=== PATIENT | male | born 1975 | race Hispanic/Latino ===

== ENCOUNTER 2023-05-15 06:29 | Day surgery (SDC) | payer BC ==
[2023-05-14 15:31] LABS: Absolute Lymphocytes (CBC) 1.6 K/uL (0.7-4.9); Hematocrit 44.1 % (39.6-49.0); Lymphocytes % 26.4 % (15.3-44.8); MCV 89.4 fL (80-100); MPV 9.4 fL (7.6-11.3); Platelets 217 thou/uL (152-406); Protime INR 1.03; RBC Red Blood Cell Count 4.94 M/uL (4.33-5.43)
[2023-05-14 16:38] LABS: Potassium 3.8 mEq/L (3.5-5.1)
[2023-05-15] MEDS ORDERED: Ringers Lactate 1,000 ML IV ONE (06:57)
[2023-05-15] MEDS ORDERED: CEFAZOLIN SODIUM 2 GM/VIAL ONE (06:57)
[2023-05-15] MEDS ORDERED: BUPIVACAINE 0.5% PF 10 ML VIAL ONE (08:10)
[2023-05-15] MEDS ORDERED: MIDAZOLAM HCL 2 MG/2 ML INJ ONE (09:05)
[2023-05-15] MEDS ORDERED: propofoL 200 MG/20 ML VIAL IV ONE (09:05)
[2023-05-15] MEDS ORDERED: FENTANYL CITR 100 MCG/2 ML ONE (09:05)
[2023-05-15] MEDS ORDERED: LIDOCAINE 2% MPF 5 ML VIAL ONE (09:06)
[2023-05-15] MEDS ORDERED: ONDANSETRON 4 MG/2 ML VIAL ONE (09:06)
[2023-05-15] MEDS ORDERED: dexAMETHasone 4 MG/ML VIAL ONE (09:24)
[2023-05-15] MEDS ORDERED: KETOROLAC 30 MG/ML INJ ONE (09:24)
[2023-05-15] MEDS ORDERED: KETAMINE HCL IN 0.9 % NACL 50 MG/5 ML SYRINGE IV ONE (09:33)
[2023-05-15] MEDS ORDERED: MORPHINE 10 MG/ML VIAL ONE (09:41)
[2023-05-15] MEDS ORDERED: HYDROCODONE/APAP 5/325 MG TAB PO PRN (10:38)
[2023-05-15] MEDS: HYDROMORPHONE HCL 1 MG/ML INJ ONE ×4 (10:50→11:15)
[2023-05-15] MEDS ORDERED: HYDRALAZINE HCL 20 MG/ML VIAL ONE (11:14)
[2023-05-15] MEDS ORDERED: HYDROCODONE/APAP 10/325 TAB ONE (11:53)
[2023-05-15 13:51] VITALS: BP 145/91; TEMP 97.3; O2SAT 100
--- NOTE | 2023-05-15 14:25 | EKG ---
Test Date: 2023-05-14 Test Time: 16:06:38 Component Design Engineer: MARK MEASUREMENT RESULTS: Intervals: Rate: 87 IN: 122 QRSD: 86 QT: 344 QTc: 413 [place]: P: 46 IN: 122 QRS: 76 T: 65 INTERPRETIVE STATEMENTS: Normal sinus rhythm Normal ECG No previous ECG available for comparison Electronically Signed On 05-15-23 14:22:17 ASSEMBLY PRESS OPERATOR by Gil Cruz
--- NOTE | 2023-05-15 19:41 | OP ---
Surgeon: HASMUKH BERNSTEIN Preoperative Diagnoses: 1.Right testicular mass. 2.Right scrotal/testicular pain. Postoperative Diagnoses: 1.Right testicular mass. 2.Right scrotal/testicular pain. Principal Procedure: Right inguinal radical orchiectomy. Indication For Procedure: Mr. Marks is a 47-year-old gentleman, who presented to the [facility] w ith an over year long history of a subcentimeter largely exophytic, but palpable testicular mass. He saw me because of significant pain involving the right hemiscrotum/testicle and he had been started on antimicrobial therapy by his primary care physician in prior to his visit with me. Upon review of the imaging, the ultrasound, while truly demonstrating avascular iso and hypoechoic lesion, did demo nstrate the presence of a mass that was largely exophytically growing off the right testicle. Becaus sasha of the unusual exophytic nature of the palpable lesion, I recommended allowing time for the antimic robial therapy to see if it resolved his pain, and if significant pain resolution, we would repeat th e ultrasound to see if the mass persisted, potentially recognizing it might represent an abscess or i nflammatory lesion. However, despite improvement with the antimicrobial therapy and resolution of hi s pain, the mass persisted unchanged, so he was counseled extensively on the need for surgical therap y and offered a partial orchiectomy versus radical orchidectomy. Because of personal reasons, sense of already having hypogonadal symptoms, desire to undergo vasectomy anyway, and desire for rapid retu rn to work, he decided to proceed with the radical orchiectomy. Procedure In Detail: The patient was consented in the preoperative holding area before being transfe rred to the operative suite where general anesthesia was induced. He was given Ancef 2 g IV antimicr obial prophylaxis, and pneumo boots were provided for DVT prophylaxis. He was placed supine and the right subinguinal region and right hemipelvis were shaved before being prepped with Betadine includin g his scrotum and genitalia before being draped in standard fashion. I identified and marked the bor ders of the inguinal canal and made a Meka's line incision along the middle portion of the palpable extent of the inguinal canal. This incision was approximately 2 cm in length, and I instilled subcu taneous Marcaine 0.5% for local anesthesia. I then incised the skin and deepened it through the subc utaneous tissues using electrocautery down through the fat until the cord structures were visible bryson eath the shelving edge of the inguinal ligament. I then dissected and was able to encircle the cord structures with my finger elevating them into the incision space and placed a [place] drain beneath i t and then around it ligating the blood flow to the testicle and the venous and lymphatic drainage. I then carefully delivered the testicle via the subinguinal region into the incision area and careful ly released the tunics from the scrotal wall by dividing the gubernaculum with care taken to avoid in jury to the skin. Once we successfully divided the gubernaculum and the testicle was freed, I then kellie jose developed the dissection along the cord structures beneath the shelving edge of the inguinal l igament and was able to visualize the internal inguinal ring by simply elevating the lower border of the inguinal canal. With this now visible, I placed a right angle clamp right at the entry to the in ternal inguinal ring and the vas deferens from the remainder of the cord structures. I lig ated the vas deferens with 2-0 silk suture and divided it sharply with electrocautery. I then ligate d the cord structures using 2-0 silk suture as a suture ligature before applying 0 silk suture additi onally as a reinforcing tie. I then divided the cord structures right along the border with the righ t angle clamp and delivered the testicle and its cord structures and tunics for pathologic analysis. I then removed the right angle clamp and assessed the stump for any sign of bleeding, and with no bl eeding observed, I then tied the 2-0 silk suture ligature with the 0 silk hand free tie together and cut that suture leaving a 1 to 2 cm tag. In the event, subsequent extraction intra-abdominally is re quired. The cord structures then did emanate back into his abdominal cavity as expected, and we then irrigated the inguinal region before reapproximating the tissues using 2-0 Vicryl overlying the subi nguinal region. I then closed the subcutaneous fat with 3-0 Vicryl suture before irrigating the tiss ues again and closing the skin with 4-0 Monocryl. Dermabond was applied to seal the skin, and the pa tient was awakened from general anesthesia. He was then transferred to a stretcher before being noyola sferred to the recovery room in good condition. Complications: None. Discharge Disposition: He should follow up in the Urology Clinic within the next 1 to 2 weeks to dis cuss the results of the pathology and determine next steps in management as required. STEVE/JATINDER Voice ID: [id number] Report ID: [id number]
== END 2023-05-15 12:15 | disposition home or self-care (01) ==
LOC: OR 06:29
PROVIDERS: ATTEND Urology
PROC: 0VT90ZZ Resection of Right Testis, Open Approach (ICD-10-PCS; principal; 2023-05-15 08:45)
DX: D29.21 Benign neoplasm of right testis (principal); N50.9 Disorder of male genital organs, unspecified; N50.811 Right testicular pain
CPT/HCPCS: 54530; 93005; 85025; 80048; 36415; 85610; 88309; 84403; 84402; 83002; 84146; J0360; J2704; J1100; J2001; J2250; J3010; J1170 ×2; J2405; J7120